=== PATIENT | female | born 1995 | race Caucasian/White ===

== ENCOUNTER 2020-12-22 20:50 | Emergency (ER) | payer OTHER ==
[~2020-12-22] VITALS: Ht 160 cm; Wt 61.3 kg
[2020-12-22 21:27] VITALS: Ht 160 cm; Wt 61.3 kg
[2020-12-22 22:22] LABS: BASOPHIL % 0.4 % (0.2-1.3); PLATELET COUNT 327 x10^3mcL (179-408); RED CELL DISTRIBUTION WIDTH 12.7 % (12.3-17.7)
[2020-12-23 02:15] VITALS: BP 132/94
== END 2020-12-23 02:15 | disposition home or self-care (01) ==
LOC: ED 20:50
DX: O03.9 Complete or unspecified spontaneous abortion without complication (principal)